=== PATIENT | female | born 1980 | race Caucasian/White ===

== ENCOUNTER 2019-07-06 18:21 | Emergency (ER) | payer BC ==
--- NOTE | 2019-07-06 19:15 | EDM.PDOC ---
ED HPI GENERAL MEDICAL PROBLEM - General Chief Complaint: Chest Pain Stated Complaint: CHEST PAINS Time Seen by Provider: 07/06/19 18:45 Source of Information: Reports: Patient History Limitations: Reports: No Limitations - History of Present Illness INITIAL COMMENTS - FREE TEXT/NARRATIVE: being treated for pneumonia , still on zithromax, sputum still productive of thick yellow phlegm , chest tightness and pressure with cough noted still feels very tired tried to work on sunday and was not able Onset: Gradual Onset Date: 06/25/19 Duration: Waxing/Waning Location: Reports: Chest Quality: Reports: Dull, Pressure Severity: Moderate Improves with: Reports: Heat Therapy, Movement Worsens with: Reports: Immobilization Context: Reports: Sick Contact Associated Symptoms: Reports: Cough, Diaphoresis, Fever/Chills, Headaches, Loss of Appetite, Malaise, Shortness of Breath - Related Data Allergies Allergy/AdvReac Type Severity Reaction Status Date / Time cefaclor [From Ceclor] Allergy Hives Verified 07/06/19 18:33 Home Meds: Home Meds Levothyroxine Sodium [Synthroid] 25 mcg PO ACBREAKFAST #30 tab 05/05/18 [Rx] Albuterol Sulfate [Proair Hfa] 8.5 gm IH Q4HR PRN #1 hfa.aer.ad 07/06/19 [Rx] Benzonatate [Tessalon Perle] 100 mg PO TID #30 capsule 07/06/19 [Rx] Doxycycline Hyclate 100 mg PO BIDAC #20 tablet.dr 07/06/19 [Rx] Fluconazole [Diflucan] 150 mg PO ONETIME #1 tab 07/06/19 [Rx] guaiFENesin [Mucinex] 600 mg PO BID #30 tab.er 07/06/19 [Rx] Past Medical History Cardiovascular History: Reports: Other (See Below) Other Cardiovascular History: states that she has been having palpitations. Gastrointestinal History: Reports: GERD, Irritable Bowel Syndrome, Other (See Below) Other Gastrointestinal History: heartburn. 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 MANAGEMENT ASSOCIATE History: Musculoskeletal History: Reports: Fracture Other Musculoskeletal History: hx R wrist chip fx, Psychiatric History: Reports: Anxiety, Depression Endocrine/Metabolic History: Reports: Hypothyroidism, Obesity/BMI 30+ - Infectious Disease History Infectious Disease History: Reports: Chicken Pox - Past Surgical History HEENT Surgical History: Reports: Oral Surgery Female Surgical History: Reports: Section Other Female Surgeries/Procedures: CS x 1 Musculoskeletal Surgical History: Reports: None Social & Family History - Family History Family Medical History: Noncontributory - Tobacco Use Smoking Status *Q: Never Smoker - Caffeine Use Caffeine Use: Reports: Energy Drinks, Soda - Recreational Drug Use Recreational Drug Use: No ED ROS GENERAL - Review of Systems Review Of Systems: See Below Constitutional: Reports: Chills, Malaise, Weakness, Fatigue HEENT: Reports: No Symptoms Respiratory: Reports: Shortness of Breath, Cough, Sputum Cardiovascular: Reports: No Symptoms Endocrine: Reports: Fatigue GI/Abdominal: Reports: Anorexia Musculoskeletal: Reports: No Symptoms Skin: Reports: No Symptoms Neurological: Reports: Headache Psychiatric: Reports: No Symptoms Hematologic/Lymphatic: Reports: No Symptoms ED EXAM, GENERAL - Physical Exam Exam: See Below Exam Limited By: No Limitations General Appearance: Alert, WD/WN, No Apparent Distress Eye Exam: Bilateral Eye: EOMI Ears: Normal External Exam, Normal TMs Nose: Nasal Drainage, Clear Rhinorrhea Throat/Mouth: Normal Oropharynx Head: Atraumatic, Normocephalic Neck: Supple, Non-Tender, Full Range of Motion Respiratory/Chest: Lungs Clear, Normal Breath Sounds Cardiovascular: Regular Rate, Rhythm Back Exam: Normal Inspection Extremities: Normal Inspection Neurological: Alert, Oriented, Normal Gait Psychiatric: Normal Affect, Normal Mood Skin Exam: Warm Course - Vital Signs Last Recorded V/S: Last Vital Signs Temp 36.8 C 07/06/19 18:33 Pulse 85 07/06/19 18:33 Resp 18 07/06/19 18:33 BP 146/81 H 07/06/19 18:33 Pulse Ox 99 07/06/19 18:33 Departure - Departure Time of Disposition: 19:15 Disposition: Home, Self-Care 01 Condition: Fair Clinical Impression: Pneumonia, Bronchitis - Discharge Information *PRESCRIPTION DRUG MONITORING PROGRAM REVIEWED*: Not Applicable *COPY OF PRESCRIPTION DRUG MONITORING REPORT IN PATIENT GABYB: Not Applicable Prescriptions: Albuterol Sulfate [Proair Hfa] 8.5 gm IH Q4HR PRN #1 hfa.aer.ad PRN Reason: Shortness Of Breath Benzonatate [Tessalon Perle] 100 mg PO TID #30 capsule Doxycycline Hyclate 100 mg PO BIDAC #20 tablet. Fluconazole [Diflucan] 150 mg PO ONETIME #1 tab guaiFENesin [Mucinex] 600 mg PO BID #30 tab.er Instructions: How to Use a Metered Dose Inhaler, Community-Acquired Pneumonia, Adult Referrals: Sunshine Velez [employer]PERINTENDENT TRANSMISSION [Primary Care Provider] - Forms: ED Department Discharge, ED Return to Work/School Form Additional Instructions: Increase fluid intake , rest Sepsis Event Note - Evaluation Sepsis Screening Result: No Definite Risk - Focused Exam Vital Signs: Vital Signs Temp Pulse Resp BP Pulse Ox 07/06/19 18:33 36.8 C 85 18 146/81 H 99 Date Exam was Performed: 07/06/19 Time Exam was Performed: 19:16
== END 2019-07-06 19:28 | disposition home or self-care (01) ==
LOC: FB.ED 18:21
DX: J18.9 Pneumonia, unspecified organism (principal); J40 Bronchitis, not specified as acute or chronic; E03.9 Hypothyroidism, unspecified; E66.9 Obesity, unspecified; Z88.1 Allergy status to other antibiotic agents; Z79.890 Hormone replacement therapy
CPT/HCPCS: 99284

== ENCOUNTER 2020-05-07 08:55 | Emergency (ER) | payer BC ==
--- NOTE | 2020-05-07 09:34 | EDM.PDOC ---
ED HPI GENERAL MEDICAL PROBLEM - General Chief Complaint: Chest Pain Stated Complaint: COVID POSITIVE Time Seen by Provider: 05/07/20 09:25 Source of Information: Reports: Patient History Limitations: Reports: No Limitations - History of Present Illness INITIAL COMMENTS - FREE TEXT/NARRATIVE: pt with COVD , Day #10 States she has had intermittent chest pain , left sided . Sharp shooting , for a minute or 2 , then resolves, no radiation to arm or neck. denies any cough fever . PCP was concerned about PE. Pt is not on OCP or hormones pt has mild elevation in BP , resolved with rest Onset: Today Onset Date: 05/07/20 Duration: Day(s):, Intermittent Location: Reports: Chest Quality: Reports: Dull Severity: Mild Improves with: Reports: None Worsens with: Reports: None Associated Symptoms: Reports: No Other Symptoms Chest Pain Score (Numeric/FACES): 2 - Related Data Allergies Allergy/AdvReac Type Severity Reaction Status Date / Time cefaclor [From Ceclor] Allergy Hives Verified 07/06/19 18:33 Home Meds: Home Meds Levothyroxine Sodium [Synthroid] 25 mcg PO ACBREAKFAST #30 tab 05/05/18 [Rx] Albuterol Sulfate [Proair Hfa] 8.5 gm IH Q4HR PRN #1 hfa.aer.ad 07/06/19 [Rx] Benzonatate [Tessalon Perle] 100 mg PO TID #30 capsule 07/06/19 [Rx] Doxycycline Hyclate 100 mg PO BIDAC #20 tablet.dr 07/06/19 [Rx] Fluconazole [Diflucan] 150 mg PO ONETIME #1 tab 07/06/19 [Rx] guaiFENesin [Mucinex] 600 mg PO BID #30 tab.er 07/06/19 [Rx] Naproxen 500 mg PO BID #60 tablet 05/07/20 [Rx] Past Medical History Cardiovascular History: Reports: Other (See Below) Other Cardiovascular History: states that she has been having palpitations. Gastrointestinal History: Reports: GERD, Irritable Bowel Syndrome, Other (See Below) Other Gastrointestinal History: heartburn. 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 History: Musculoskeletal History: Reports: Fracture Other Musculoskeletal History: hx R wrist chip fx, Psychiatric History: Reports: Anxiety, Depression Endocrine/Metabolic History: Reports: Hypothyroidism, Obesity/BMI 30+ - Infectious Disease History Infectious Disease History: Reports: Chicken Pox - Past Surgical History HEENT Surgical History: Reports: Oral Surgery Female Surgical History: Reports: Section Other Female Surgeries/Procedures: CS x 1 Musculoskeletal Surgical History: Reports: None Social & Family History - Family History Family Medical History: No Pertinent Family History - Caffeine Use Caffeine Use: Reports: Energy Drinks, Soda ED ROS GENERAL - Review of Systems Review Of Systems: See Below Constitutional: Denies: Fever, Chills, Malaise, Weakness, Fatigue HEENT: Reports: No Symptoms Respiratory: Reports: Pleuritic Chest Pain. Denies: Shortness of Breath, Wheezi ng, Cough, Sputum Cardiovascular: Reports: Chest Pain, Blood Pressure Problem. Denies: Dyspnea on Exertion, Edema, Orthopnea, Palpitations Endocrine: Reports: No Symptoms GI/Abdominal: Denies: Abdominal Pain, Anorexia : Reports: No Symptoms Musculoskeletal: Reports: No Symptoms Skin: Reports: No Symptoms Neurological: Reports: Dizziness. Denies: Headache, Numbness, Paresthesia, Change in Speech Psychiatric: Reports: Anxiety Hematologic/Lymphatic: Reports: No Symptoms Immunologic: Reports: No Symptoms ED EXAM, GENERAL - Physical Exam Exam: See Below Exam Limited By: No Limitations General Appearance: Alert, WD/WN, No Apparent Distress Eye Exam: Bilateral Eye: EOMI Ears: Normal External Exam, Hearing Grossly Normal Ear Exam: Bilateral Ear: TM Dull Nose: Normal Inspection, Normal Mucosa Throat/Mouth: Normal Inspection, Normal Voice Head: Atraumatic, Normocephalic Neck: Normal Inspection, Supple Respiratory/Chest: No Respiratory Distress, Lungs Clear, No Accessory Muscle Use Cardiovascular: Normal Peripheral Pulses, Regular Rate, Rhythm, No JVD GI/Abdominal: Soft, Non-Tender Back Exam: Normal Inspection, Full Range of Motion Extremities: Normal Inspection, Normal Range of Motion Neurological: Alert, Oriented, CN II-XII Intact Psychiatric: Anxious Skin Exam: Dry, Intact #1 Interpretation EKG Date: 05/07/20 Rhythm: NSR Viper: Normal P-Wave: Present QRS: Normal ST-T: Normal QT: Normal Comparison: NA - No Prior EKG Course - Vital Signs Last Recorded V/S: Last Vital Signs Temp 36.7 C 05/07/20 09:05 Pulse 62 05/07/20 10:31 Resp 16 05/07/20 10:31 BP 133/83 05/07/20 10:31 Pulse Ox 100 05/07/20 10:31 - Orders/Labs/Meds Labs: Laboratory Tests 05/07/20 05/07/20 05/07/20 Range/Units 09:35 09:35 09:35 WBC 6.7 (3.0-10.3) x10-3/uL RBC 4.86 (3.60-5.20) x10(6)uL Hgb 12.5 (11.4-15.5) g/dL Hct 39.0 (34.2-48.2) % MCV 80.2 (76.7-100.5) fL MCH 25.6 (23.9-33.9) pg MCHC 31.9 (31.9-34.8) g/dL RDW 15.8 (12.3-16.5) % Plt Count 318 (151-488) x10(3)uL MPV 10.1 (7.1-12.4) fL Neutrophils % (Manual) 71 (46-82) % Lymphocytes % (Manual) 24 (13-37) % Monocytes % (Manual) 5 (4-12) % D-Dimer, Quantitative 0.58 (0.0-0.59) mg/LFEU Sodium 137 (135-145) mmol/L Potassium 4.1 (3.5-5.3) mmol/L Chloride 102 (100-110) mmol/L Carbon Dioxide 26 (21-32) mmol/L BUN 9 (7-18) mg/dL Creatinine 0.9 (0.55-1.02) mg/dL Est Cr Clr Drug Dosing 80.12 mL/min Estimated GFR (MDRD) > 60 (>60) BUN/Creatinine Ratio 10.0 (9-20) Glucose 99 (80-116) mg/dL Calcium 8.9 (8.6-10.2) mg/dL Total Bilirubin 0.6 (0.1-1.3) mg/dL AST 23 D (5-25) IU/L ALT 42 H D (12-36) U/L Alkaline Phosphatase 62 (56-112) IU/L Total Protein 8.3 H (6.0-8.0) g/dL Albumin 3.6 (3.5-5.2) g/dL Globulin 4.7 g/dL Albumin/Globulin Ratio 0.8 Meds: Medications Discontinued Medications Generic Name Dose Route Start Last Admin Trade Name Jb PRN Reason Stop Dose Admin Ketorolac Tromethamine 30 mg 05/07/20 10:27 05/07/20 10:33 Toradol IVPUSH 05/07/20 10:28 Not Given ONETIME ONE Ketorolac Tromethamine 60 mg 05/07/20 10:33 05/07/20 10:40 Toradol IM 05/07/20 10:34 60 mg ONETIME ONE Administration - Re-Assessments/Exams Free Text/Narrative Re-Assessment/Exam: 05/07/20 10:54 no chest pain in the ER . NO sob Pt has been stable , BP normal labs done normal including D-dimer given IM toradal , will continue with naproxen at home for possible costochondritis 05/08/20 11:56 Departure - Departure Time of Disposition: 10:55 Disposition: Home, Self-Care 01 Condition: Good Clinical Impression: Costochondritis, acute, Costochondral pain, COVID-19 Prescriptions: Naproxen 500 mg PO BID #60 tablet Instructions: Costochondritis, [id number], Nonspecific Chest Pain, Adult, [id number], Chest Wall Pain Referrals: PCP,None [Ordering Only Provider] - Forms: ED Department Discharge Additional Instructions: Make appointment to see your PCP for BP management and possible Stress test Warm compress to the affected area of the chest wall Follow up with your provider in the next one week Sepsis Event Note (ED) - Evaluation Sepsis Screening Result: No Definite Risk
[2020-05-07] MEDS ORDERED: Ketorolac 30 MG/ML SDV IVPUSH ONE (10:27)
[2020-05-07] MEDS ORDERED: Ketorolac 60 MG/2 ML SDV IM ONE (10:33)
== END 2020-05-07 11:16 | disposition home or self-care (01) ==
LOC: FB.ED 08:55
DX: M94.0 Chondrocostal junction syndrome [Tietze] (principal); U07.1 COVID-19; E03.9 Hypothyroidism, unspecified; E66.9 Obesity, unspecified; Z68.38 Body mass index [BMI] 38.0-38.9, adult; Z88.1 Allergy status to other antibiotic agents
CPT/HCPCS: 36415; 71045; 80053; 85025; 85379; 93005; 96372; 99285; J1885; 99284

== ENCOUNTER 2020-05-14 07:22 | Emergency (ER) | payer BC ==
--- NOTE | 2020-05-14 08:39 | EDM.PDOC ---
ED HPI GENERAL MEDICAL PROBLEM - General Chief Complaint: General Stated Complaint: SOB/COVID Time Seen by Provider: 05/14/20 07:40 Source of Information: Reports: Patient History Limitations: Reports: No Limitations - History of Present Illness INITIAL COMMENTS - FREE TEXT/NARRATIVE: pt c/o feeling restless and anxious this morning, report its hard to breath, tingling sensation, chest tightness for seconds and nausea, denies any other associated sx or concerns, report having had Covid 17 days ago and that went well for her. indicate Hx of anxiety and has xanax at home that she has not been using lately, tells me she was tried on different antidepressants but they did not work well for her. Treatments MINE FOREMAN: Reports: Acetaminophen Other Treatments MINE FOREMAN: 0600 1000mg tylenol - Related Data Allergies Allergy/AdvReac Type Severity Reaction Status Date / Time cefaclor [From Ceclor] Allergy Mild Hives Verified 05/14/20 07:31 Home Meds: Home Meds Levothyroxine Sodium [Synthroid] 25 mcg PO ACBREAKFAST #30 tab 05/05/18 [Rx] Albuterol Sulfate [Proair Hfa] 8.5 gm IH Q4HR PRN #1 hfa.aer.ad 07/06/19 [Rx] Benzonatate [Tessalon Perle] 100 mg PO TID #30 capsule 07/06/19 [Rx] Doxycycline Hyclate 100 mg PO BIDAC #20 tablet.dr 07/06/19 [Rx] Fluconazole [Diflucan] 150 mg PO ONETIME #1 tab 07/06/19 [Rx] guaiFENesin [Mucinex] 600 mg PO BID #30 tab.er 07/06/19 [Rx] Naproxen 500 mg PO BID #60 tablet 05/07/20 [Rx] Past Medical History HEENT History: Reports: None Cardiovascular History: Reports: Other (See Below) Other Cardiovascular History: Hx palpitations. Respiratory History: Reports: SOB Other Respiratory History: today sob Gastrointestinal History: Reports: GERD, Irritable Bowel Syndrome, Other (See Below) Other Gastrointestinal History: heartburn, takes omeprazole 40mg po every other day, took yesterday. 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 Musculoskeletal History: Reports: Fracture Other Musculoskeletal History: hx R wrist chip fx, Psychiatric History: Reports: Anxiety, Depression Endocrine/Metabolic History: Reports: Hypothyroidism, Obesity/BMI 30+ - Infectious Disease History Infectious Disease History: Reports: Chicken Pox - Past Surgical History HEENT Surgical History: Reports: Oral Surgery Cardiovascular Surgical History: Reports: None Respiratory Surgical History: Reports: None GI Surgical History: Reports: None Female Surgical History: Reports: Section Other Female Surgeries/Procedures: CS x 1 Endocrine Surgical History: Reports: None Musculoskeletal Surgical History: Reports: None Social & Family History - Family History Family Medical History: No Pertinent Family History - Tobacco Use Tobacco Use Status *Q: Never Tobacco User - Caffeine Use Caffeine Use: Reports: Soda - Recreational Drug Use Recreational Drug Use: No ED ROS GENERAL - Review of Systems Review Of Systems: See Below Constitutional: Reports: No Symptoms HEENT: Reports: No Symptoms Respiratory: Reports: Shortness of Breath Cardiovascular: Reports: Chest Pain GI/Abdominal: Reports: Nausea. Denies: Diarrhea, Vomiting : Reports: No Symptoms Musculoskeletal: Reports: No Symptoms Skin: Reports: No Symptoms Neurological: Reports: Headache, Numbness Psychiatric: Reports: Anxiety ED EXAM, GENERAL - Physical Exam Exam: See Below Exam Limited By: No Limitations General Appearance: Alert, No Apparent Distress Eye Exam: Bilateral Eye: Normal Inspection Ears: Normal External Exam Nose: Normal Inspection, Normal Mucosa Throat/Mouth: Normal Inspection Head: Atraumatic, Normocephalic Neck: Normal Inspection, Supple, Non-Tender, Full Range of Motion Respiratory/Chest: No Respiratory Distress, Lungs Clear, Normal Breath Sounds Cardiovascular: Normal Peripheral Pulses, Regular Rate, Rhythm GI/Abdominal: Normal Bowel Sounds, Soft, Non-Tender Back Exam: Normal Inspection, Full Range of Motion Extremities: Normal Inspection, Normal Range of Motion Neurological: Alert, Oriented, CN II-XII Intact Psychiatric: Normal Affect. No: Depressed Mood Skin Exam: Warm Course - Vital Signs Text/Narrative:: pt appeared comfortable here, lungs clear, labs unremarkable , she seems to be experiencing symptoms of generalized anxiety, she is stable to use own meds at home for this and follow on this issue with PCP> Last Recorded V/S: Last Vital Signs Temp 36.6 C 05/14/20 07:25 Pulse 85 05/14/20 07:25 Resp 18 05/14/20 07:25 BP 140/92 H 05/14/20 07:25 Pulse Ox 100 05/14/20 07:25 - Orders/Labs/Meds Labs: Laboratory Tests 05/14/20 05/14/20 Range/Units 07:40 07:40 WBC 6.9 (3.0-10.3) x10-3/uL RBC 4.58 (3.60-5.20) x10(6)uL Hgb 11.8 (11.4-15.5) g/dL Hct 37.3 (34.2-48.2) % MCV 81.4 (76.7-100.5) fL MCH 25.7 (23.9-33.9) pg MCHC 31.5 L (31.9-34.8) g/dL RDW 16.2 (12.3-16.5) % Plt Count 298 (151-488) x10(3)uL MPV 10.3 (7.1-12.4) fL Neut % (Auto) 57.1 (30.8-76.2) % Lymph % (Auto) 33.1 (18.4-52.1) % Sawyer % (Auto) 8.1 (4.4-15.7) % Eos % (Auto) 1.1 (0.6-8.1) % Baso % (Auto) 0.6 (0.2-1.5) % Neut # (Auto) 3.9 (1.5-6.3) x10-3/uL Lymph # (Auto) 2.3 (1.0-4.4) x10-3/uL Sawyer # (Auto) 0.6 (0.3-1.0) x10-3/uL Eos # (Auto) 0.1 (0.0-0.8) x10-3/uL Baso # (Auto) 0.0 (0.0-0.1) x10-3/uL Sodium 139 (135-145) mmol/L Potassium 3.9 (3.5-5.3) mmol/L Chloride 101 (100-110) mmol/L Carbon Dioxide 27 (21-32) mmol/L BUN 9 (7-18) mg/dL Creatinine 0.8 (0.55-1.02) mg/dL Est Cr Clr Drug Dosing 90.13 mL/min Estimated GFR (MDRD) > 60 (>60) BUN/Creatinine Ratio 11.3 (9-20) Glucose 103 (80-116) mg/dL Calcium 8.7 (8.6-10.2) mg/dL Total Bilirubin 0.5 (0.1-1.3) mg/dL AST 13 D (5-25) IU/L ALT 25 D (12-36) U/L Alkaline Phosphatase 67 (56-112) IU/L Total Protein 7.7 (6.0-8.0) g/dL Albumin 3.5 (3.5-5.2) g/dL Globulin 4.2 g/dL Albumin/Globulin Ratio 0.8 Departure - Departure Time of Disposition: 08:39 Disposition: Home, Self-Care 01 Clinical Impression: Anxiety - Discharge Information Referrals: Baldomero Tenorio MD [Primary Care Provider] - Sepsis Event Note (ED) - Evaluation Sepsis Screening Result: No Definite Risk - Focused Exam Vital Signs: Vital Signs Temp Pulse Resp BP Pulse Ox 05/14/20 07:25 36.6 C 85 18 140/92 H 100
== END 2020-05-14 08:41 | disposition home or self-care (01) ==
LOC: FB.ED 07:22
DX: F41.9 Anxiety disorder, unspecified (principal); E03.9 Hypothyroidism, unspecified; E66.9 Obesity, unspecified; Z68.38 Body mass index [BMI] 38.0-38.9, adult; Z88.1 Allergy status to other antibiotic agents; Z79.899 Other long term (current) drug therapy
CPT/HCPCS: 36415; 80053; 85025; 99283

== ENCOUNTER 2022-02-01 21:00 | Emergency (ER) | payer SELFPAY | END 2022-02-01 23:08 | disposition home or self-care (01) | LOC: FB.ED 21:00 | DX: B34.9 Viral infection, unspecified (principal); E03.9 Hypothyroidism, unspecified; K21.9 Gastro-esophageal reflux disease without esophagitis; E66.9 Obesity, unspecified; Z68.41 Body mass index [BMI] 40.0-44.9, adult; Z88.1 Allergy status to other antibiotic agents; Z79.899 Other long term (current) drug therapy; Z20.822 Contact with and (suspected) exposure to COVID-19 | CPT/HCPCS: 71045; 99281; 99283; U0002 ==

== ENCOUNTER 2022-08-13 07:18 | Emergency (ER) | payer BC ==
[2022-08-13 08:14] LABS: ESTIMATED GFR 83 mL/min (>60)
[2022-08-13] MEDS: Sucralfate 1 GM Tab PO ONE (10:06)
[2022-08-13] MEDS: Pantoprazole 40 MG Tab.CR ONE (10:14)
[2022-08-13] MEDS: Pantoprazole 40 MG Tab.CR PO STA (10:14)
[2022-08-14] MEDS ORDERED: Pantoprazole 40 MG Tab.CR PO SCH (06:00)
== END 2022-08-13 10:25 | disposition home or self-care (01) ==
LOC: FB.ED 07:18
DX: K92.2 Gastrointestinal hemorrhage, unspecified (principal); D50.9 Iron deficiency anemia, unspecified; K21.9 Gastro-esophageal reflux disease without esophagitis; E03.9 Hypothyroidism, unspecified; E66.9 Obesity, unspecified; Z88.1 Allergy status to other antibiotic agents; Z79.899 Other long term (current) drug therapy
CPT/HCPCS: 36415; 80053; 81003; 85025; 99283; 99284; A9270-GY